=== PATIENT | male | born 1965 | race Caucasian/White ===

== ENCOUNTER → 2018-02-25 | Outpatient (CLI) | payer OTHER ==
[~2018-02-25] MED LIST: ACID CONTROL150 MG PO; ADVIL,NUPRIN,M200 MG PO; DOVONEX TP; HYDROCODON-ACE1 EAC7 PO; PERCOCET 5/31 TABLET PO; Zantac PO
== END | disposition home or self-care (01) ==
LOC: CDC 11:05
DX: Z01.810 Encounter for preprocedural cardiovascular examination (principal); R22.1 Localized swelling, mass and lump, neck; I45.10 Unspecified right bundle-branch block
CPT/HCPCS: 93000

== ENCOUNTER 2018-03-03 05:26 | Day surgery (SDC) | payer OTHER ==
[~2018-03-03] VITALS: Ht 185.4 cm; Wt 115.3 kg
[2018-03-03 07:04] VITALS: BP 114/69
[2018-03-03] MEDS ORDERED: TRAMADOL HCL50 MG PO (09:20)
[2018-03-03 10:19] VITALS: BP 151/96
[2018-03-03 11:15] VITALS: BP 128/92
== END 2018-03-03 11:35 | disposition home or self-care (01) ==
LOC: SDC 05:26
PROC: 0JB40ZZ Excision of Right Neck Subcutaneous Tissue and Fascia, Open Approach (ICD-10-PCS; principal; 2018-03-03)
DX: D17.0 Benign lipomatous neoplasm of skin and subcutaneous tissue of head, face and neck (principal); I45.10 Unspecified right bundle-branch block; F41.9 Anxiety disorder, unspecified; Z87.891 Personal history of nicotine dependence
CPT/HCPCS: 88304; J0131; J0330; J0690; J1100; J2250; J2405; J3010; S0020